=== PATIENT | female | born 1990 | race Two or more races ===

== ENCOUNTER → 2017-12-23 | Outpatient (CLI) | payer SELFPAY ==
--- NOTE | 2017-12-23 16:29 | RADIOLOGY REPORT (SQ) ---
EXAM DESCRIPTION: U/S RETROPERITON (RENAL/AORTA) COMPLETED DATE/TIME: 12/23/2017 3:26 pm REASON FOR STUDY: R10.2PELVIC PAIN AND CHRONIC FLANK PAIN R10.9 UNSPECIFIED ABDOMINAL PAIN R10.2 PE LVIC AND PERINEAL PAIN R10.9 UNSPECIFIED ABDOMINAL PAIN COMPARISON: None. TECHNIQUE: Dynamic and static grayscale images acquired of the kidneys and bladder and recorded on P ACS. Additional selected color Doppler and spectral images recorded. LIMITATIONS: None. FINDINGS: RIGHT KIDNEY: Normal size. Normal echogenicity. No solid or suspicious masses. 7 mm dilated renal pelvis. No calcifications. LEFT KIDNEY: Normal size. Normal echogenicity. No solid or suspicious masses. 8 mm dilated danii al pelvis. No calcifications. BLADDER: No masses. Left ureteral jet. OTHER FINDINGS: No other significant finding. IMPRESSION: Mild dilatation of the renal pelves. Extra renal pelvis versus mild hydronephrosis. TECHNICAL DOCUMENTATION: JOB ID: [id number] [employer]- All Rights Reserved
--- NOTE | 2017-12-23 16:31 | RADIOLOGY REPORT (SQ) ---
EXAM DESCRIPTION: U/S NON-OB PELVIS W/O DOP COMPLETED DATE/TIME: 12/23/2017 3:26 pm REASON FOR STUDY: PELVIC PAIN AND CHRONIC FLANK PAIN R10.2 PELVIC AND PERINEAL PAIN R10.9 UNSPECIF IED ABDOMINAL PAIN COMPARISON: None. TECHNIQUE: Dynamic and static grayscale images acquired of the pelvis via transabdominal approach an d recorded on PACS. Additional selected color Doppler and spectral images recorded. LIMITATIONS: None. FINDINGS: UTERUS: Contour normal. No mass. ENDOMETRIAL STRIPE: No focal or generalized thickening. No masses. IUD in place. CERVIX: No nabothian cysts. RIGHT OVARY: No abnormal masses. RIGHT OVARY DOPPLER: Normal arterial vascular flow without evidence for torsion. LEFT OVARY: Ovary not visualized. FREE FLUID: None noted. OTHER: No other significant finding. MEASUREMENTS: UTERUS: 8.3 x 4.2 x 3.7 cm ENDOMETRIAL STRIPE: 15 mm RIGHT OVARY: 2.1 x 1.1 x 1.2 cm LEFT OVARY: Not visualized. IMPRESSION: IUD in expected location. Otherwise normal ultrasound. TECHNICAL DOCUMENTATION: JOB ID: [id number]- All Rights Reserved
== END ==
LOC: RAD 15:10
PROVIDERS: ATTEND Student in an Organized Health Care Education/Training Program
DX: R10.2 Pelvic and perineal pain (principal); R10.9 Unspecified abdominal pain; Z97.5 Presence of (intrauterine) contraceptive device
CPT/HCPCS: 76770; 76856